=== PATIENT | female | born 1945 | race Caucasian/White ===

== ENCOUNTER 2022-05-06 18:31 | Emergency (ER) | payer MEDICARE, OTHER ==
[2022-05-06] MEDS ORDERED: ONDANSETRON ODT4 MG PO (19:37)
[2022-05-06] MEDS ORDERED: KEFLEX250 MG PO (19:37)
[2022-05-06] MEDS ORDERED: NORCO 5-325 TA1 EACH PO (19:37)
[2022-05-06] MEDS ORDERED: COLCRYS0.6 MG PO (19:38)
== END 2022-05-06 20:05 | disposition home or self-care (01) ==
LOC: FER 18:31
DX: M79.675 Pain in left toe(s) (principal)
CPT/HCPCS: 73660